=== PATIENT | male | born 1995 | race Caucasian/White ===

== ENCOUNTER 2017-06-27 22:25 | Emergency (ER) | payer BC, OTHER ==
[~2017-06-27] VITALS: Ht 175.3 cm; Wt 99.8 kg
[2017-06-27 22:37] VITALS: TEMP 36.7; Ht 175.3 cm; Wt 99.8 kg
[2017-06-27] MEDS ORDERED: CNC/27 PO (22:52)
[2017-06-27] MEDS ORDERED: ESCI1TAB10 PO (22:52)
[2017-06-27] MEDS ORDERED: MELATAB2 PO (22:52)
[2017-06-27] MEDS ORDERED: ONDANSETRON INJ 2 MG/ML 2 ML VIAL IV STA (22:56)
[2017-06-27] MEDS ORDERED: SODIUM CHLORIDE 0.9% 1000ML 1,000 ML IV STA (22:56)
[2017-06-27 23:16] LABS: BASO % 0.1 %; BASO ABS # 0.02 K/uL (0-0.2); EOS % 0.4 %; EOS ABS # 0.07 K/uL (0-0.5); HEMOGLOBIN 17.4 g/dL (14.0-18.0); IG# 0.07 K/uL (0.00-0.02); LYMPH % 3.5 %; LYMPH ABS # 0.59 K/uL (1.2-3.4); MEAN CELL VOLUME 88.7 fL (80-100); MEAN CORPUSCULAR HEMOGLOBIN 32.2 pg (25-34); MEAN CORPUSCULAR HGB CONC 36.3 g/dl (32-36); MEAN PLATELET VOLUME 9.7 fL (7.4-10.4); MONO % 3.9 %; MONO ABS # 0.66 K/uL (0.11-0.59); NEUT % 91.7 %; NEUT ABS # 15.54 K/uL (1.4-6.5); PLATELET COUNT 326 K/uL (130-400); RED CELL DISTRIBUTION WIDTH SD 41.9 fL (36.4-46.3); WHITE BLOOD COUNT 16.95 K/uL (4.8-10.8)
[2017-06-27 23:33] LABS: CALCIUM 9.6 mg/dl (8.5-10.1); CREATININE 1.11 mg/dl (0.60-1.40); POTASSIUM 3.9 mmol/L (3.5-5.1)
[2017-06-28 00:10] VITALS: BP 115/58; PULSE 92; O2SAT 98
[2017-06-28] MEDS ORDERED: ONDANSETRON HOME PACK 4MG OD TAB PO ONE (00:30)
[2017-06-28] MEDS ORDERED: ONDA4TAB10 SL (00:38)
--- NOTE | 2017-06-28 00:39 | EMERGENCY ROOM VISIT NOTE ---
History First contact with patient: 22:45 Chief Complaint: VOMITING Stated Complaint: VOMITING,DIARRHEA Nursing Triage Summary: Patient notes vomiting, diarrhea and abdominal cramps all day today. History of Present Illness The patient is a 21 year old male who presents to the Emergency Room with complaints of vomiting and diarrhea. The patient reports that early this morning, he began feeling nauseous. He states that he had some water and felt okay. Throughout the day, the patient began to develop abdominal cramping and the urge to have a bowel movement. He then developed a few episodes of diarrhea. He began vomiting after that and has had 3 episodes of vomiting since then. He states that his symptoms feel like a stomach bug he has had in the past. He reports a crampy, dull abdominal pain rated a 3/10. He denies hematemesis or hematochezia. He did not take any medications for his symptoms. He denies any other sick contacts. He denies recent antibiotic use. He has not been drinking from any fresh water sources recently. Review of Systems A complete 10 point review of systems was reviewed with the patient with pertinent positives and negatives as per history of present illness. All else were negative. Past Medical/Surgical History Medical Problems: (1) No significant active problems Social History Smoking Status: Never Smoker Occupation Status: [email or web address] student Current/Historical Medications Scheduled Escitalopram Oxalate (Lexapro), 20 MG PO DAILY Melatonin (Melatonin Maximum Strengt), 1 TAB PO HS Methylphenidate Hcl (Concerta), 27 MG PO DAILY Ondasetron Odt (Zofran Odt), 4 MG SL Q6H Physical Exam Vital Signs Date Time Temp Pulse Resp B/P (MAP) Pulse Ox O2 Delivery O2 Flow Rate FiO2 06/28/17 00:10 92 16 115/58 98 Room Air 06/27/17 22:37 36.7 117 18 134/75 98 Room Air Physical Exam VITALS: Vitals are noted on the nurse's note and reviewed by myself. Vital signs stable. GENERAL: This is a 21-year-old male, in no acute distress, nondiaphoretic, well- developed well-nourished. SKIN: The skin was without rashes. EARS: External auditory canals clear, tympanic membranes pearly edwards without erythema or effusion bilaterally. EYES: Pupils equal round and reactive to light and accommodation. MOUTH: Mucous membranes moist. Tonsils are not enlarged. Pharynx without erythema or exudate. NECK: Supple without nuchal rigidity. No lymphadenopathy. HEART: Regular rate and rhythm without murmurs gallops or rubs. LUNGS: Clear to auscultation bilaterally without wheezes, rales or rhonchi. ABDOMEN: Positive bowel sounds x 4. Soft, nontender, without masses or organomegaly. No guarding or rebound tenderness. NEURO: Patient was alert and oriented to person place and time. Medical Decision & Procedures Laboratory Results 06/27/17 23:00 Red Blood Count 5.41, Mean Corpuscular Volume 88.7, Mean Corpuscular Hemoglobin 32.2, Mean Corpuscular Hemoglobin Concent 36.3, Mean Platelet Volume 9.7, Neutrophils (%) (Auto) 91.7, Lymphocytes (%) (Auto) 3.5, Monocytes (%) (Auto) 3.9, Eosinophils (%) (Auto) 0.4, Basophils (%) (Auto) 0.1, Neutrophils # (Auto) 15.54, Lymphocytes # (Auto) 0.59, Monocytes # (Auto) 0.66, Eosinophils # (Auto) 0.07, Basophils # (Auto) 0.02 06/27/17 23:00 Test 06/27/17 23:00 White Blood Count 16.95 K/uL (4.8-10.8) Red Blood Count 5.41 M/uL (4.7-6.1) Hemoglobin 17.4 g/dL (14.0-18.0) Hematocrit 48.0 % (42-52) Mean Corpuscular Volume 88.7 fL (80-100) Mean Corpuscular Hemoglobin 32.2 pg (25-34) Mean Corpuscular Hemoglobin Concent 36.3 g/dl (32-36) Platelet Count 326 K/uL (130-400) Mean Platelet Volume 9.7 fL (7.4-10.4) Neutrophils (%) (Auto) 91.7 % Lymphocytes (%) (Auto) 3.5 % Monocytes (%) (Auto) 3.9 % Eosinophils (%) (Auto) 0.4 % Basophils (%) (Auto) 0.1 % Neutrophils # (Auto) 15.54 K/uL (1.4-6.5) Lymphocytes # (Auto) 0.59 K/uL (1.2-3.4) Monocytes # (Auto) 0.66 K/uL (0.11-0.59) Eosinophils # (Auto) 0.07 K/uL (0-0.5) Basophils # (Auto) 0.02 K/uL (0-0.2) RDW Standard Deviation 41.9 fL (36.4-46.3) RDW Coefficient of Variation 13.0 % (11.5-14.5) Immature Granulocyte % (Auto) 0.4 % Immature Granulocyte # (Auto) 0.07 K/uL (0.00-0.02) Urine Color ORANGE Urine Appearance CLEAR (CLEAR) Urine pH 5.0 (4.5-7.5) Urine Specific Accident 1.031 (1.000-1.030) Urine Protein 1+ (NEG) Urine Glucose (UA) NEG (NEG) Urine Ketones 1+ (NEG) Urine Occult Blood NEG (NEG) Urine Nitrite NEG (NEG) Urine Bilirubin NEG (NEG) Urine Urobilinogen NEG (NEG) Urine Leukocyte Esterase NEG (NEG) Urine WBC (Auto) 1-5 /hpf (0-5) Urine RBC (Auto) 0-4 /hpf (0-4) Urine Hyaline Casts (Auto) 5-10 /lpf (0-5) Urine Epithelial Cells (Auto) 10-20 /lpf (0-5) Urine Bacteria (Auto) NEG (NEG) Anion Gap 6.0 mmol/L (3-11) Est Creatinine Clear Calc Drug Dose 122.6 ml/min Estimated GFR () 109.4 Estimated GFR (Non- 94.4 BUN/Creatinine Ratio 21.5 (10-20) Calcium Level 9.6 mg/dl (8.5-10.1) Medications Administered Medications (Trade) Dose Ordered Sig/James Route Start Time Stop Time Status Last Admin Dose Admin Sodium Chloride 1,000 ml @ 999 mls/hr Q1H1M STAT IV 06/27/17 22:56 06/27/17 23:56 DC 06/27/17 23:03 999 MLS/HR Ondansetron HCl (Zofran Inj) 4 mg NOW STAT IV 06/27/17 22:56 06/27/17 22:57 DC 06/27/17 23:03 4 MG Ondansetron HCl (ZOFRAN ODT 4MG Home Pack) 1 homepack UD ONCE PO 06/28/17 00:30 06/28/17 00:31 DC 06/28/17 00:36 1 HOMEPACK Medical Decision Differential diagnosis includes gastroenteritis, bowel obstruction, colitis, C. difficile, foodborne illness, neurovirus, among others. The patient is a 21-year-old male who presents today complaining of nausea, vomiting and diarrhea. Labs revealed leukocytosis of almost 17,000. Labs were otherwise unremarkable, with no anemia or concerning electrolyte abnormalities urinalysis was not suggestive of infection. Patient was given IV fluids and antiemetics and felt much better. There has been a high prevalence of GI illness in the community recently which is believed to be viral. Patient was unable to provide a stool sample. He was given a home pack and prescription of Zofran and will follow up with [facility]. Based on the patient's presentation and work up, I feel the patient is stable for outpatient treatment. The patient was educated to return to the emergency department for any worsening of their current condition or new/concerning symptoms. He will follow up with [facility]. Medication Reconcilliation Current Medication List: was personally reviewed by tx Blood Pressure Screening Patient's blood pressure: Normal blood pressure Impression Primary Impression: Nausea, vomiting, and diarrhea Departure Information Dispostion Home / Self-Care Condition GOOD Prescriptions Ondasetron Odt (ZOFRAN ODT) 4 Mg Tab 4 MG SL Q6H for Nausea, #15 TAB Prov: Erika Greer .NITIN 06/28/17 Referrals [facility] (PCP) Patient Instructions My [facility] Additional Instructions You have been prescribed Zofran to be used for any nausea or vomiting. Take as prescribed. For pain control, you can use the following [id number] medicines (if >12 yo): - Regular strength (325mg/tab) Tylenol (acetaminophen) 2 tabs every 4-6 hours as needed. Do not exceed 12 tablets in a 24 hour period. Avoid taking more than 4 grams (4000 mg) of Tylenol per day. This includes any other sources of acetaminophen you may take on a regular basis. - Regular strength (200 mg/tab) Advil (ibuprofen) 1-2 tabs every 4-6 hours as needed. Do not exceed a dose of 3200 mg per day. Rest and drink plenty of fluids. Make sure to take frequent small sips of fluids such as water or Gatorade to stay hydrated. Keep a bland diet. I would recommend the BRAT diet (bananas, rice, applesauce, toast). Follow-up with [facility] this week if you have persistent symptoms. Return to the emergency department with any worsening pain, vomiting, fevers or other new/concerning symptoms.
== END 2017-06-28 00:44 | disposition home or self-care (01) ==
LOC: C.EDB 22:27 → C.EDC 06-28 00:44
DX: R11.2 Nausea with vomiting, unspecified (principal); R19.7 Diarrhea, unspecified